=== PATIENT | female | born 1980 | race Caucasian/White ===

== ENCOUNTER 2019-06-25 16:35 | Emergency (ER) | payer OTHER ==
[~2019-06-25] VITALS: Ht 165.1 cm; Wt 77.2 kg
[2019-06-25] MEDS ORDERED: EPINEPHrine 1MG/10ML SYRINGE 1.5IN ONE (16:36)
[2019-06-25] MEDS ORDERED: NS 1,000 ML IV ONE ×2 (17:00→18:30)
[2019-06-25] MEDS ORDERED: GLIP5TAB8 PO (17:01)
[2019-06-25] MEDS ORDERED: METF-791 PO (17:01)
[2019-06-25] MEDS ORDERED: ISOVUE-370 76% 100ML VIAL (Q9967) As Ordered ONE (17:13)
--- NOTE | 2019-06-25 17:32 | REP ---
HISTORY: Chest pain. The technique utilized in obtaining the radiograph has magnified the cardiac silhouette and accentuated the interstitial markings. The superior mediastinal structures are midline. The cardiac silhouette is unremarkable in size, shape, and position. The diaphragmatic surfaces of the lungs are regular, and the costophrenic angles are clear. The pulmonary roberts are clear. The imaged osseous structures are intact. IMPRESSION: There is no acute cardiopulmonary disease. Electronically Signed by Willy Michaels DO 06/25/2019 06:03 P
[2019-06-25 17:33] LABS: MAGNESIUM LEVEL 1.5 MG/DL (1.8-2.4); PHOSPHORUS LEVEL 5.3 MG/DL (2.5-4.9)
--- NOTE | 2019-06-25 17:34 | REPVR ---
PROCEDURE INFORMATION: Exam: CT Angiography Chest With Contrast Exam date and time: 06/25/2019 5:15 PM Age: 39 years old Clinical indication: Chest pain; Additional info: Chest pain rad to back R/O dissection TECHNIQUE: Imaging protocol: Computed tomographic angiography of the chest with intravenous contrast. 3D rendering: MIP and/or 3D reconstructed images were created by the technologist. Radiation optimization: All CT scans at this facility use at least one of these dose optimization techniques: automated exposure control; mA and/or kV adjustment per patient size (includes targeted exams where dose is matched to clinical indication); or iterative reconstruction. Contrast material: ISOVUE 370; Contrast volume: 75 ml; Contrast route: IV; COMPARISON: No relevant prior studies available. FINDINGS: Pulmonary arteries: Pulmonary arteries are unremarkable. No filling defects. Aorta: No aortic aneurysm. No evidence of dissection. Lungs: Mild bibasilar dependent atelectasis of the lower lobes. Pleural space: No pleural effusion or pneumothorax. Heart: Unremarkable. No pericardial effusion. Lymph nodes: No enlarged lymph nodes. Bones/joints: No acute osseus lesion or fracture. Soft tissues: Unremarkable. IMPRESSION: No acute findings in the thorax. Electronically signed by: Jason Barcenas On 06/25/2019 17:34:23 PM
[2019-06-25] MEDS ORDERED: HEPARIN DRIP 25,000 UNITS in IV 1 EA IV SCH (17:38)
[2019-06-25 17:40] LABS: ALBUMIN 3.4 GM/DL (3.2-5.2); ALT/SGPT 27 U/L (12-78); BILIRUBIN,DIRECT < 0.1 MG/DL (0.0-0.2); BILIRUBIN,TOTAL 0.1 MG/DL (0.2-1.0); BLOOD UREA NITROGEN 14 MG/DL (7-18); CALCIUM LEVEL 7.9 MG/DL (8.5-10.1); CARBON DIOXIDE LEVEL 19 MEQ/L (21-32); CHLORIDE LEVEL 109 MEQ/L (98-107); CPK CREATINE PHOSPHOKINASE 69 U/L (26-192); FREE T4 1.15 NG/DL (0.76-1.46); GLOMERULAR FILTRATION RATE > 60.0 (>58); GLUCOSE, FASTING 303 MG/DL (70-100); LIPASE 156 U/L (73-393); POTASSIUM SERUM 3.9 MEQ/L (3.5-5.1); SODIUM LEVEL 140 MEQ/L (136-145); TOTAL PROTEIN 6.7 GM/DL (6.4-8.2)
[2019-06-25] MEDS ORDERED: TENECTEPLASE 50 MG KIT (TNKase) (J3101 PER 1MG) IV ONE (17:45)
[2019-06-25] MEDS ORDERED: CLOPIDOGREL 300 MG TAB (PLAVIX) PO ONE (17:45)
[2019-06-25] MEDS ORDERED: HEPARIN SOD (PORCINE) 5000UNITS/ML VIAL (J1644 PER 1000UNITS) IV ONE (17:45)
[2019-06-25 17:47] LABS: BASO # 0.1 10^3/uL (0.0-0.2); BASO % 0.5 % (0.0-1.0); EOS # 0.2 10^3/uL (0.0-0.5); EOS % 0.9 % (0.0-3.0); HEMATOCRIT 37.8 % (36.0-47.0); HEMOGLOBIN 12.1 g/dl (12.0-15.5); LYMPH % 30.6 % (24.0-44.0); MEAN CORPUSCULAR HEMOGLOBIN 28.9 pg (27.0-33.0); MEAN CORPUSCULAR VOLUME 90.4 fl (80.0-96.0); MONO # 0.8 10^3/uL (0.0-0.8); MONO % 4.1 % (0.0-5.0); NEUTROPHILS # 12.4 10^3/uL (1.5-8.5); NEUTROPHILS % 63.2 % (36.0-66.0); PLATELET COUNT, AUTOMATED 318 10^3/uL (150-450); RED BLOOD COUNT 4.18 10^6/uL (4.00-5.40)
[2019-06-25] MEDS ORDERED: MAGNESIUM SULFATE 1GM/100ML D5W BAG (10MG/ML) As Ordered ONE (17:51)
[2019-06-25 17:55] LABS: WHITE BLOOD COUNT 19.6 10^3/uL (4.0-10.0)
[2019-06-25] MEDS ORDERED: NITROGLYCERIN 0.4 MG SUBL TABLET SL STA (17:58)
[2019-06-25 17:59] LABS: INR 1.13; PROTHROMBIN TIME 14.2 SECONDS (11.8-14.0)
[2019-06-25 18:00] LABS: PARTIAL THROMBOPLASTIN TIME 29.4 SECONDS (25.0-38.4)
[2019-06-25] MEDS ORDERED: MAG SULF 1GM/100ML (MAG RUN) 1 GM in IV 1 EA IV ONE (18:00)
[2019-06-25] MEDS ORDERED: NS 1,000 ML IV SCH (18:11)
[2019-06-25] MEDS ORDERED: DOBUTamine HCL 500,000 MCG in IV 1 EA IV SCH (18:15)
[2019-06-25 18:32] VITALS: BP 124/93
[2019-06-25] MEDS ORDERED: NOREPINEPHRINE BITARTRATE 8 MG in D5W 492 ML IV SCH ×2 (19:22→19:29)
[2019-06-25] MEDS ORDERED: MIDAZOLAM 5MG/ML 1ML VIAL (J2250 PER 1MG) As Ordered ONE (19:24)
[2019-06-25] MEDS ORDERED: MIDAZOLAM INJ 2MG/2ML VIAL (J2250 PER 1MG) IV ONE (19:30)
[2019-06-25] MEDS ORDERED: EPINEPHrine 1MG/10ML SYRINGE 1.5IN As Ordered ONE (19:54)
[2019-06-25] MEDS ORDERED: EPINEPHrine 1MG/10ML SYRINGE 1.5IN IV STA ×9 (20:20)
--- NOTE | 2019-06-25 20:46 | ED PDOC ---
Post-Departure Follow-Up ED Attending Progress Note: Patient was received [employer] team, bundled patient and loaded patient in helicopter. Just as helicopter about to take off and prior to patients chart being closed out of computer, patient went into PEA cardiac arrest on helipad. CPR and BVM began, [facility] gave Epinephrine 1 mg IV x 2 en route back down to ED. CPR per ACLS continued, patient continued in PEA. Patient was intubated with 7.5 mm ET tube using Glidescope, 1 attempt. Breath sounds and CO2 detected, BVM continued. Subsequently began to note blood in ET tube as consequence of CPR and having received thrombolytics for acute myocardial infarction. Epinephrine continued. Subequently patient had ROSC but blood pressure remained low. Patient was on dobutamine and a second pressor Levophed was started. Patient again lost pulse so CPR resumed. Patient had one episode of V-fib at a rhythm check and so received defibrillation at 200 Joules x 1. Patient again had ROSC. Spoke with Design Supervisor Dr. Kaur regarding admission to ICU for stabilization. Dr. Kaur recommended patient continued to need PCI at [facility]. Spoke with who has arrived to ED. Updated him regarding patients condition and continuing to lose her pulse. Patient's at that point determined that patient would not want continued resuscitation given the poor fdc prognosis (patient unable to maintain pulse for greater than 1 hour, no spontaneous respirations (respiratory therapy placed patient on ventilator), and pupils now nonreactive). elected not to continue resuscitation if patient lost pulse again. At 2014, patient again lost pulse. No pulse by Doppler ultrasound, apneic, pupils nonreactive. Patient was pronounced at 2014. Attempted to contact PCP at [facility] - unable to contact a provider. Spoke with ME Dr. Ponce who accepted case. Patient's informed, support being extended by [facility]. INDU THOMPSON MD Jun 25, 2019 20:46
--- NOTE | 2019-06-26 04:58 | REP ---
Clinical: Status post intubation. Comparison: 06/25/2019. Findings: Endotracheal tube 1 cm above the shavon. Diffuse bilateral alveolar and interstitial infiltrates noted. No effusion. No pneumothorax. Skeletal structures intact. Impression: Diffuse bilateral alveolar and interstitial infiltrates. Differential diagnosis includes pneumonitis as well as pulmonary edema. Electronically Signed by Luke Dickson MD 06/26/2019 04:49 A
--- NOTE | 2019-06-26 15:02 | ECGEPIP ---
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
== END 2019-06-25 22:28 | disposition expired ==
LOC: EDBD 16:35 → M ED 16:35
DX: I21.3 ST elevation (STEMI) myocardial infarction of unspecified site (principal); I46.9 Cardiac arrest, cause unspecified; I95.9 Hypotension, unspecified; E11.9 Type 2 diabetes mellitus without complications; Z79.84 Long term (current) use of oral hypoglycemic drugs; F17.210 Nicotine dependence, cigarettes, uncomplicated
CPT/HCPCS: 31500; 71045; 71275; 80047; 80048; 80076; 82550; 82553; 83690; 83735; 84100; 84439; 84443; 85025; 85610; 85730; 92950; 93005; 93041; 94760; 96365; 96367; 96375; 96376; 99291; J1250; J1644; J2250; J3101; J3475; Q9967

== ENCOUNTER → 2019-06-26 | Outpatient (REF) ==
[~2019-06-26] MED LIST: GLIP5TAB8 PO; METF-791 PO
== END ==
LOC: M LAB 10:40
DX: Z02.89 Encounter for other administrative examinations (principal)